=== PATIENT | male | born 1985 | race Caucasian/White ===

== ENCOUNTER 2024-06-29 18:33 | Emergency (ER) | payer SELFPAY ==
--- NOTE | ~2024-06-29 | XR_ITS ---
EXAMINATION: XR CHEST CLINICAL INFORMATION: Productive cough COMPARISON: None available. TECHNIQUE: 2 views of the chest were obtained. FINDINGS: Subtle left lower lobe opacity, which on lateral view projects over the lower thoracic spine, suspicious for early pneumonia. No pneumothorax or pleural effusion. Cardiomediastinal silhouette within normal limits. Soft tissue and osseous structures are unremarkable. XR/XR chest 2V IMPRESSION: Suspected early left lower lobe consolidation. Electronically signed by: Mark Diana DO 06/29/2024 09:19 PM EDT
[2024-06-29 19:04] VITALS: BP 120/70; PULSE 80; RESP 18; TEMP 36.9; O2SAT 93; BMI 24.5
--- NOTE | 2024-06-29 19:04 | ED.GENADULT ---
HPI - General Adult General Chief complaint: Upper Respiratory Symptoms Stated complaint: congested cough,fever Time Seen by Provider: 06/29/24 20:53 History of Present Illness ED Provider: Paresh WILSON narrative: The patient is a smoker. He says that he had felt sick with respiratory symptoms for about a week and a half but 2 days ago started to feel considerably better. He says that then last night he got into bed and suddenly his symptoms worsened with the cough, chills, and sweats. He did not take his temperature. He feels he has been coughing a lot today and wheezing and feels somewhat ill. No nausea or vomiting. He has no history of wheezing. Related Data Previous Rx's ?Medication ?Instructions ?Recorded albuterol sulfate 90 mcg/actuation 2 puff inhalation Q4-6H PRN 06/29/24 aerosol inhaler shortness of breath or wheezing #8.5 grams doxycycline monohydrate 100 mg 100 mg PO BID #14 caps 06/29/24 capsule Allergies Allergy/AdvReac Type Severity Reaction Status Date / Time No Known Allergies Allergy Verified 06/29/24 19:05 Review of Systems Review of Systems: Yes all other systems are reviewed and are negative [facility] Social History Social History Advance Directives: No Advance Directives Information Provided: No Physical Exam ED Vital Signs: Vital Signs - 24 hr 06/29/24 19:04 Temperature 98.4 F Pulse Rate 80 Respiratory Rate 18 Blood Pressure 120/70 Pulse Oximetry 93 Oxygen Delivery Method Room Air BMI result Body Mass Index 24.5 Const Other: The patient is a slim 38-year-old male who was awake and alert and does not seem in overt distress although he had a fairly frequent cough with audible wheezes. There was a strong smell of cigarettes in the room. HENMT Other: Face is symmetrical. Mucous membranes moist. Eyes General: appearance normal, both eyes and all related structures Neck Neck: Yes no JVD Resp Other: No increased work of breathing. There were wheezes and rhonchi in both lung lópez but more so on the right. Cardio Rate: regular rate Rhythm: regular rhythm Heart sounds: S1 normal heart sound present and S2 normal heart sound present Skin Other: Skin is pale and dry Neuro Other: The patient is awake and alert with a normal mental status. Gait is steady. Neurologically intact. Extrem Other: No peripheral edema Course Course Course Narrative: This is a Rapid Medical Examination (RME) performed by Floyd Morrison PA-C in triage. Full HPI, ROS, assessment and treatment plan per primary provider in the Main ED. 38 yo male here for eval of cough productive of green sputum and nasal congestion. no documented fever. his gf is currently being treated for pneumonia. Plan: viral swabs, CXR Medical Decision Making Medical Decision Making MDM Narrative: The patient is a 38-year-old male who has no significant past medical history aside from his smoking. He presents with cough and shortness of breath and he also describes feeling sweats and chills. His lung exam is consistent with possible bronchitis or possibly pneumonia. Chest x-ray has not been officially read. There may possibly be very subtle signs of a mild pneumonia but this is equivocal. In any event I think the patient can be treated as if this is an episode of asthmatic bronchitis. He will be instructed in the use of an inhaler and placed on doxycycline. I do not think he looks sick enough to require steroids. He does not have a primary care doctor. He is encouraged to try to get a primary care doctor. Addendum: X-ray was ultimately read as a early left lower lobe infiltrate. Lab Data Labs: Lab Results 06/29/24 Range/Units 19:11 Influenza Type A (PCR) NEGATIVE (Negative) Influenza Type B (PCR) NEGATIVE (Negative) RSV RNA Qual (PCR) NEGATIVE (Negative) SARS-CoV-2 RNA (RT-PCR) NEGATIVE (Negative) Discharge Plan Discharge Clinical Impression: Acute asthmatic bronchitis, Left lower lobe pneumonia Patient Disposition: Home, Self-Care Instructions: How to Use a Metered-Dose Inhaler and a Spacer (ED), Wheezing (ED) Additional Instructions: Please take the antibiotic 2 times a day, approximately every 12 hours. Please complete the whole course of antibiotics. You may use the albuterol inhaler 2 puffs every 4-6 hours as needed for any cough or shortness of breath or wheezing. Drink a lot of fluids. Please do your best to reduce or eliminate smoking. If you continue smoking you will be at risk for bad lung infections. Please also work on getting a primary care doctor. Contact your insurance company to get a list of primary care doctors that accept your insurance. Return to the emergency room if significantly worse. Prescriptions: New doxycycline monohydrate 100 mg capsule 100 mg PO BID Qty: 14 0RF albuterol sulfate 90 mcg/actuation HFA aerosol inhaler 2 puff inhalation Q4-6H PRN (Reason: shortness of breath or wheezing) Qty: 8.5 0RF Print Language: Somali
[2024-06-29 20:00] LABS: Influenza A PCR NEGATIVE (Negative); Influenza B PCR NEGATIVE (Negative); Resp Syncy Virus RNA Qual PCR NEGATIVE (Negative); SARS COV2 PCR INHOUSE NEGATIVE (Negative)
[2024-06-29] MEDS: Doxycycline Monohydrate 100 MG CAPSULE PO (21:34)
[2024-06-29 21:35] VITALS: BP 124/76; PULSE 80; RESP 20; TEMP 36.8; O2SAT 97
[2024-06-29] MEDS: Albuterol Sulfate 90 MCG 8 GM INHALER 4 PUFF INHALE (21:36)
[2024-06-29 21:38] VITALS: BP 124/76; PULSE 80; RESP 20; TEMP 36.8; O2SAT 97
== END 2024-06-29 21:38 | disposition home or self-care (01) ==
PROVIDERS: Physician Assistant Medical; Emergency Provider Emergency Medicine
DX: J20.9 Acute bronchitis, unspecified (principal); J18.8 Other pneumonia, unspecified organism; R05.9 Cough, unspecified; Z03.818 Encounter for observation for suspected exposure to other biological agents ruled out
CPT/HCPCS: 0241U; 71046; 99283; 99284